=== PATIENT | male | born 1970 | race Caucasian/White ===

== ENCOUNTER 2021-09-20 17:22 | Emergency (ER) | payer BC ==
[~2021-09-20] VITALS: Ht 172.7 cm; Wt 131.5 kg
[2021-09-20] MEDS ORDERED: KETOROLAC TROMETHAMINE 30 MG/ML VIAL IV STA (17:34)
[2021-09-20] MEDS ORDERED: ONDANSETRON HCL INJ 2MG/ML 2ML 2 MG/ML VIAL IV STA (17:34)
[2021-09-20] MEDS ORDERED: ONDANSETRON HCL INJ 2MG/ML 2ML 2 MG/ML VIAL ONE (18:06)
[2021-09-20] MEDS ORDERED: KETOROLAC TROMETHAMINE 30 MG/ML VIAL ONE (18:06)
[2021-09-20] MEDS ORDERED: FLOMAX0.4 MG PO (19:22)
[2021-09-20] MEDS ORDERED: IBUPROFEN600 MG PO (19:22)
[2021-09-20] MEDS ORDERED: ONDANSETRON ODT4 MG PO (19:22)
[2021-09-20] MEDS ORDERED: HYDROCODON-ACE1 EA11 PO (19:22)
[2021-09-20 19:39] VITALS: BP 157/88
== END 2021-09-20 19:39 | disposition home or self-care (01) ==
LOC: FSED 17:25
DX: R11.2 Nausea with vomiting, unspecified (principal); N13.2 Hydronephrosis with renal and ureteral calculous obstruction; K76.0 Fatty (change of) liver, not elsewhere classified; E11.9 Type 2 diabetes mellitus without complications; E78.5 Hyperlipidemia, unspecified; E03.9 Hypothyroidism, unspecified
CPT/HCPCS: 74176; 80053; 81003; 85025; 99284; J1885; J2405

== ENCOUNTER → 2021-09-29 | Day surgery (SDC) | payer BC ==
[~2021-09-29] MED LIST: ATORVASTATIN CA10 MG PO; CEFTRIAXONE 1 GM VIAL ONE; FLOMAX0.4 MG PO; HYDROCODON-ACE1 EA11 PO; IBUPROFEN600 MG PO; IOPAMIDOL 300MG/ML 50ML INFUS..BTL IV ONE; LIDOCAINE HCL 2% LOCAL INJ 5 ML SDV VIAL INJ ONE; METFORMIN HCL500 MG PO; OMEGA 3 FISH O1 EACH PO; ONDANSETRON HCL INJ 2MG/ML 2ML 2 MG/ML VIAL ONE; ONDANSETRON ODT4 MG PO; POVIDONE IODINE 0.05% 0.05 % ML PO ONE; PROPOFOL IV EMULSION 10 MG/ML 20 ML VIAL ONE; SEVOFLURANE INHAL SOLN 250 ML PEN BTL ONE; SYNTHROID125 MCG PO; TRICOR145 MG PO; TRULICITY3 MG/0.5 M PO; VITAMIN B122500 MCG PO; VITAMIN D3125 MCG PO
[2021-09-29 08:10] VITALS: BP 152/92
== END | disposition home or self-care (01) ==
LOC: OR 05:35
PROVIDERS: ATTEND Urology
DX: N20.1 Calculus of ureter (principal); N32.89 Other specified disorders of bladder; N40.0 Benign prostatic hyperplasia without lower urinary tract symptoms; G47.33 Obstructive sleep apnea (adult) (pediatric); E78.5 Hyperlipidemia, unspecified; E11.9 Type 2 diabetes mellitus without complications; E03.9 Hypothyroidism, unspecified; Z01.810 Encounter for preprocedural cardiovascular examination; Z01.812 Encounter for preprocedural laboratory examination; Z01.818 Encounter for other preprocedural examination; Z20.822 Contact with and (suspected) exposure to COVID-19; Z79.84 Long term (current) use of oral hypoglycemic drugs; Z79.899 Other long term (current) drug therapy
CPT/HCPCS: 52005; 74018; 93005; C1758; C1769; J0696; Q9967; U0002; J2001; J2405